=== PATIENT | male | born 1950 | race Caucasian/White ===

== ENCOUNTER → 2018-03-04 | Outpatient (CLI) | payer MEDICARE ==
[~2018-03-04] MED LIST: ALEVE 220MG220 MG PO; ALLEGRA 180MG180 MG PO; APRESOLINE50 MG PO; BETAPACE 80MG80 MG PO; BIOFREEZE 0.2%-1 GE1 TOP; CALCIUM/MAGNESI1 TAB PO; CINNAMON500 MG PO; CORDARONE200 MG/TAB PO; COREG12.5 MG PO; COZAAR100 MG PO; ELIQUIS 5MG PO; EMU OIL 1 ML1 ML; EMU OIL 1 ML1 ML TOP; FORMULA 303 PO; GLUCOPHAGE XR500 M1 PO; NASACORT OTC NS; NASAREL0.025 MG/1 NAS; NASONEX SPRAY17 GM NS; NATURE'S BLEND500 M1 PO; PACERONE400 MG PO; PAPAYA ENZYME1 TA1 PO; PHARMASSURE ZIN50 MG PO; SALINE 45 ML45 ML NS; SALSALATE750 MG PO; TURMERIC500 MG PO; TYLENOL 325MG325 MG PO; TYLENOL 8 HR PO; VITAMIN B122500 MCG SL; VITAMIN D32000 I1 PO; [UNRECOGNIZED DRUG - OTHER] PO; [UNRECOGNIZED DRUG - OTHER] PO
== END ==
LOC: COL.RAD 08:23
DX: M25.552 Pain in left hip (principal)
CPT/HCPCS: J3301; Q9967

== ENCOUNTER 2018-06-11 10:33 | Inpatient (IN) | payer MEDICARE ==
[~2018-06-11] VITALS: Ht 180.3 cm; Wt 118.0 kg
[2018-07-21] VITALS (10 sets, daily range): BP systolic 103–133; BP diastolic 52–70; PULSE 49–87; TEMP 97–98.4
--- NOTE | 2018-07-21 07:42 | NUR ---
PT ADMITTED AMBULATORY TO ROOM 332. VSS, PRE OP PREP COMPLETE PT TO SURGERY PER BED WITH
--- NOTE | 2018-07-21 14:14 | NUR ---
MELANI met with patient and family about discharge plan. Patient lives independently at home with his and plans to return there upon discharge. Patient reports he has his outpatient PT already scheduled. Patient's PCP is Dr Hagen and he obtains prescriptions from [facility]. Patient has a walker for ambulation after discharge but no other DME is used and patient does not use home health services. Patient does have a DPOA and patient's provided a copy for the chart. MELANI does not anticipate any discharge needs.
--- NOTE | 2018-07-21 15:59 | NUR ---
PT TO ROOM 332 PER BED WITH REPORT FROM ESTRELLA RAMOS. PT IS S/O X3, LUNGS CLEAR, DRESSING TO LEFT HIP CDI WITH AQUACEL OVER INCISION. TEDS AND SCDS BIALTERALLY. VSS, IV TO PUMP PER ORDERS. FAMILY AT BEDSIDE.
--- NOTE | 2018-07-21 17:23 | NUR ---
PT RESTING DENIES NEEDS. REFUSING FOOD AT THIS TIME.
--- NOTE | 2018-07-21 18:53 | NUR ---
Report to Nannette MONCADA.
--- NOTE | 2018-07-21 20:02 | NUR ---
Report received from ANTWAN Campbell. Patient resting in bed. C/o burning to left heel. Heel floated off the bed. SCD's and GRIFFIN hose applied. Pulses present to both bilateral extremities. Patient confirms sensation and movement to left leg. Aquacell CDI. IVF running to right wrist. Patient's pain is well controlled at this time. Urinary catheter draining clear, yellow urine.
--- NOTE | 2018-07-21 23:29 | NUR ---
Patient walked to the doorway of his room and back with 2 surgical staff, gait belt, and walker. Tolerated this well. States his left knee is bothering him. Applied ice to left hip and left knee for comfort.
[2018-07-22] VITALS (7 sets, daily range): BP systolic 113–137; BP diastolic 52–70; PULSE 68–96; TEMP 98.4–99.9
--- NOTE | 2018-07-22 04:15 | NUR ---
Patient rested well throughout the night. C/o burning to left heel. Floated on pillows to help. Ice applied to left hip and knee. Patient easily arousable. States PRN Oxycodone helped with pain.
[2018-07-22 05:55] LABS: HEMOGLOBIN 10.1 g/dl (13.5-18.0)
[2018-07-22 06:00] LABS: HEMATOCRIT 28.1 % (42.0-52.0)
--- NOTE | 2018-07-22 07:54 | NUR ---
REPORT FROM JOSE ARMANDO MONCADA.
--- NOTE | 2018-07-22 09:36 | NUR ---
PT UP TO BR WITH SBA X1 HAD BM AND RETURNED TO BED. PT WORKING WITH THERAPY THIS AM. DRESSING TO LEFT HIP CDI WITH AQUACEL OVER INCISION.
--- NOTE | 2018-07-22 11:42 | NUR ---
First visit from the tug hand. No needs right now.
--- NOTE | 2018-07-22 18:54 | NUR ---
REPORT TO TOREY MONCADA.
--- NOTE | 2018-07-22 20:00 | NUR ---
REPORT RECEIVED FROM ANTWAN VELÁSQUEZ. ASSUMED CARE. ASSESSMENT COMPLETE. VS STABLE. AQUACELL TO LEFT HIP. AMBULATED IN SALMON WITH PACKAGING DESIGNER, TOLERATED WELL, APPROX 150 FEET. FRESH ICE PACK APPLIED. DENIES NEEDS AT THIS TIME. WILL MONITOR.
[2018-07-23 04:27] VITALS: BP 131/57; PULSE 89; TEMP 98.3
--- NOTE | 2018-07-23 05:00 | NUR ---
RESTED MOST OF THIS SHIFT. DENIES NEED FOR PAIN MEDICATION. HAS BEEN UP TO BATHROOM WITH ONE ASSIST. FRESH ICE PACK APPLIED TO LEFT HIP. ENCOURAGED TO CALL FOR NEEDS. VERBALIZES UNDERSTANDING. WILL MONITOR.
[2018-07-23 07:06] LABS: HEMATOCRIT 27.3 % (42.0-52.0); HEMOGLOBIN 9.6 g/dl (13.5-18.0)
--- NOTE | 2018-07-23 07:08 | NUR ---
REPORT GIVEN TO ANTWAN SORIANO
--- NOTE | 2018-07-23 08:00 | NUR ---
PATIENT IS A&O. VSS. RATES PAIN IN LLE AT 5/10. GAVE PRN NORCO, TWO TABS BEFORE AM THERAPY. LTH AQUACEL CD&I. TEDS TO BLE. SCD'S CURRENTLY OFF. POSITIVE PEDAL PULSES TO BLE. HEAD TO TOE WNL. NO OTHER NEEDS
[2018-07-23 08:07] VITALS: BP 111/45; PULSE 94; TEMP 98.8
[2018-07-23] MEDS ORDERED: CELEBREX 200MG200 MG PO (11:18)
[2018-07-23] MEDS ORDERED: ROXICODONE 55 MG/TAB PO (11:21)
[2018-07-23] MEDS ORDERED: NORCO 325 MG-7.1 TAB PO (11:22)
[2018-07-23] MEDS ORDERED: COLACE 100100 MG/CAP PO (11:22)
[2018-07-23 12:12] VITALS: BP 99/46; PULSE 66; TEMP 98.9
--- NOTE | 2018-07-23 14:20 | NUR ---
PATIENT DISCHARGING HOME VIA WHEELCHAIR TO PERSONAL VEHICLE WITH . GAVE DISCHARGE INSTRUCTIONS, PRESCRIPTIONS, AIRSTRIPS & FOLLOW UP APT. ANSWERED ALL QUESTIONS/CONCERNS. DC'D IV, COVERED SITE WITH GAUZE & PAPER TAPE. JOHNNA LEFT HIP DRESSING TO STERI STRIPS AND AIRSTIP BEFORE DISCHARGE. SENT PERSONAL BELONGINGS. PATIENT DISCHARGED.
--- NOTE | 2018-07-23 15:10 | NUR ---
CALLED ID CONSULT.
== END 2018-07-23 11:42 | disposition home or self-care (01) | DRG 470 ==
LOC: JCC 07-21 05:20
PROVIDERS: ADMIT Orthopaedic Surgery
PROC: 0SRB0JA Replacement of Left Hip Joint with Synthetic Substitute, Uncemented, Open Approach (ICD-10-PCS; principal; 2018-07-21 07:30)
DX: M16.12 Unilateral primary osteoarthritis, left hip (principal); I42.9 Cardiomyopathy, unspecified; I10 Essential (primary) hypertension; E11.9 Type 2 diabetes mellitus without complications; I48.0 Paroxysmal atrial fibrillation; Z87.891 Personal history of nicotine dependence
CPT/HCPCS: A4314; A9284; C1713; C1776; J0690; J2250; J2704; J3010; J7030

== ENCOUNTER → 2018-07-06 | Outpatient (CLI) | payer MEDICARE | LOC: COL.LAB 10:56 | DX: Z01.812 Encounter for preprocedural laboratory examination (principal) ==

== ENCOUNTER 2019-01-15 06:56 | Day surgery (SDC) | payer MEDICARE ==
[2019-01-15] VITALS (7 sets, daily range): BP systolic 102–120; BP diastolic 72–83; PULSE 44–119; TEMP 98
[~2019-01-15] VITALS: Ht 182.9 cm; Wt 129.1 kg
[~2019-01-15 06:56] MED LIST changes: +CELEBREX 200MG200 MG PO; +COLACE 100100 MG/CAP PO; +NORCO 325 MG-7.1 TAB PO; +ROXICODONE 55 MG/TAB PO
[2019-01-15 07:36] LABS: HEMOGLOBIN 12.4 g/dl (13.5-18.0); MEAN CELL VOLUME 97 fl (80.0-100.0); MEAN CORPUSCULAR HEMOGLOBIN 33 pg (27.0-31.0); MEAN CORPUSCULAR HGB CONC 34 g/dl (33.0-37.0); MEAN PLATELET VOLUME 8.5 fl (7.4-10.4); PLATELET COUNT 265 K/mm3 (130-400); RED BLOOD COUNT 3.76 M/mm3 (4.20-5.60); REDCELL DISTRIBUTION WIDTH-CV 13.5 % (11.5-14.5)
[2019-01-15 07:43] LABS: HEMATOCRIT 36.6 % (42.0-52.0)
[2019-01-15 07:48] LABS: PARTIAL THROMBOPLASTIN TIME 39.8 SECONDS (26.0-37.0)
[2019-01-15 07:52] LABS: CALCIUM 9.5 mg/dL (8.4-10.2); CREATININE, serum 0.9 (0.66-1.25); POTASSIUM 4.4 mmol/L (3.4-5.0)
[2019-01-15] MEDS ORDERED: BETAPACE 80MG80 MG PO (07:57)
[2019-01-15] MEDS ORDERED: ELIQUIS 5MG PO (07:58)
[2019-01-15] MEDS ORDERED: APRESOLINE50 MG PO ×3 (07:59→10:03)
[2019-01-15] MEDS ORDERED: NASONEX SPRAY17 GM NS (08:02)
[2019-01-15] MEDS ORDERED: ALEVE 220MG220 MG PO (08:04)
[2019-01-15] MEDS ORDERED: SALINE 45 ML45 ML NS (08:04)
[2019-01-15] MEDS ORDERED: [UNRECOGNIZED DRUG - SUPPLY] TOP (08:06)
[2019-01-15] MEDS ORDERED: [UNRECOGNIZED DRUG - OTHER] PO (08:07)
[2019-01-15] MEDS ORDERED: PAPAYA PO (08:09)
[2019-01-15] MEDS ORDERED: TRACE MINERALS PO (08:10)
[2019-01-15] MEDS ORDERED: VOLTAREN GEL 1%1 TU TP (08:19)
[2019-01-15] MEDS ORDERED: [UNRECOGNIZED DRUG - OTHER] TOP (08:20)
[2019-01-15 08:22] LABS: THYROID STIMULATING HORMONE 1.48 uIU/mL (0.465-4.680)
[2019-01-15] MEDS ORDERED: CORDARONE200 MG/TAB PO ×2 (09:20→09:21)
[2019-01-15] MEDS ORDERED: APRESOLINE 25MG25 MG PO (10:03)
[2019-01-15] MEDS ORDERED: ALDACTONE 25MG25 M1 PO (10:03)
--- NOTE | 2019-01-15 10:10 | NUR ---
rEPORT FROM Soha Ayala.
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
--- NOTE | 2019-01-15 11:10 | NUR ---
Discharge instructions given to pt.pt verbalizes understanding.INT removed,catheter tip intact.
--- NOTE | 2019-01-15 11:15 | NUR ---
Pt escorted out via wheelchair by this nurse.
== END 2019-01-15 11:31 | disposition home or self-care (01) ==
LOC: COL.CAR 06:56
PROVIDERS: Internal Medicine Cardiovascular Disease
DX: I48.0 Paroxysmal atrial fibrillation (principal); Z79.01 Long term (current) use of anticoagulants; Z79.899 Other long term (current) drug therapy; I25.10 Atherosclerotic heart disease of native coronary artery without angina pectoris; I10 Essential (primary) hypertension; I34.0 Nonrheumatic mitral (valve) insufficiency; Z87.891 Personal history of nicotine dependence; K21.9 Gastro-esophageal reflux disease without esophagitis; K44.1 Diaphragmatic hernia with gangrene; E66.01 Morbid (severe) obesity due to excess calories; E11.8 Type 2 diabetes mellitus with unspecified complications; D64.9 Anemia, unspecified; M10.9 Gout, unspecified; G47.33 Obstructive sleep apnea (adult) (pediatric); J44.9 Chronic obstructive pulmonary disease, unspecified; Z88.6 Allergy status to analgesic agent; Z88.1 Allergy status to other antibiotic agents; Z88.8 Allergy status to other drugs, medicaments and biological substances; Z82.49 Family history of ischemic heart disease and other diseases of the circulatory system; I42.9 Cardiomyopathy, unspecified
CPT/HCPCS: J0282; J2704; J7030; J7060